=== PATIENT | male | born 1980 | race Native Hawaiian/Other Pacific Islander ===

== ENCOUNTER 2019-04-07 13:45 | Emergency (ER) | payer OTHER ==
[~2019-04-07] VITALS: Ht 170.2 cm; Wt 81.6 kg
[2019-04-07 15:10] VITALS: BP 123/84; TEMP 98
== END 2019-04-07 15:10 ==
LOC: ED 13:45
DX: F99 Mental disorder, not otherwise specified (principal)
CPT/HCPCS: 99283